=== PATIENT | male | born 1995 | race Caucasian/White ===

== ENCOUNTER 2022-08-12 10:02 | Day surgery (SDC) | payer OTHER ==
[2022-08-09 19:33] VITALS: BMI 32.5
[2022-08-12] MEDS ORDERED: MIDAZOLAM HCL 2 MG/2 ML SINGLE DOSE VIAL ONE (12:50)
[2022-08-12] MEDS ORDERED: DEXAMETHASONE SOD PHOSPHATE/PF 10 MG/ML SDV ONE (12:50)
[2022-08-12] MEDS ORDERED: ROPIVACAINE HCL 0.5% 30ML VIAL ONE (12:50)
[2022-08-12] MEDS ORDERED: LIDOCAINE HCL/PF 2% SDV 5ML VIAL ONE (13:01)
[2022-08-12] MEDS ORDERED: PROPOFOL 20 ML ONE (13:01)
[2022-08-12] MEDS ORDERED: KETOROLAC TROMETHAMINE 30 MG/1 ML VIAL ONE (13:18)
[2022-08-12] MEDS ORDERED: ceFAZolin SODIUM 1 GM VIAL ONE (13:18)
[2022-08-12] MEDS ORDERED: ONDANSETRON 4 MG/2 ML VIAL ONE (13:18)
[2022-08-12] MEDS ORDERED: DEXAMETHASONE SOD PHOSPHATE 4 MG/1 ML VIAL ONE (13:18)
[2022-08-12] MEDS ORDERED: EPINEPHrine 1:1,000 1,000 MCG/ML ML ONE (14:03)
[2022-08-12] MEDS ORDERED: ONDANSETRON 4 MG/2 ML VIAL IVPUSH PRN (14:28)
[2022-08-12] MEDS ORDERED: PROMETHAZINE HCL 25 MG/1 ML VIAL IVPUSH PRN (14:28)
[2022-08-12] MEDS ORDERED: oxyCODONE HCL 5 MG TABLET PO PRN ×2 (14:28)
[2022-08-12] MEDS ORDERED: ACETAMINOPHEN 325 MG TABLET (FP) PO PRN (14:28)
[2022-08-12 15:15] VITALS: TEMP 97.8
[2022-08-12 16:18] VITALS: BP 125/69; PULSE 59
[2022-08-12 16:20] VITALS: RESP 18
== END 2022-08-12 15:55 | disposition home or self-care (01) ==
LOC: FASU 10:02
PROVIDERS: ATTEND Orthopaedic Surgery
PROC: 0RQK4ZZ Repair Left Shoulder Joint, Percutaneous Endoscopic Approach (ICD-10-PCS; principal; 2022-08-12 13:34)
DX: S43.432A Superior glenoid labrum lesion of left shoulder, initial encounter (principal); X58.XXXA Exposure to other specified factors, initial encounter; Y93.9 Activity, unspecified; Y92.9 Unspecified place or not applicable
CPT/HCPCS: 29806; C1713; 94760